=== PATIENT | female | born 1975 | race Caucasian/White ===

== ENCOUNTER 2022-08-21 15:39 | Emergency (ER) | payer OTHER, MEDICAID ==
[~2022-08-21] VITALS: Ht 152.4 cm; Wt 65.8 kg
[2022-08-21] MEDS ORDERED: ACET-10509 PO (16:37)
[2022-08-21] MEDS ORDERED: IBUP-1842 PO (16:37)
[2022-08-21 16:53] VITALS: BP 120/65; PULSE 74; RESP 18; TEMP 98
[2022-08-21 16:55] VITALS: RESP 18; TEMP 98
--- NOTE | 2022-08-21 16:56 | NUR ---
Patient discharged with v/s stable. Written and verbal after care instructions given and explained. Patient alert, oriented and verbalized understanding of instructions. with steady gait. All questions addressed prior to discharge. ID band removed. Patient advised to follow up with PMD. Rx of IBUPROFEN, TYLENOL given. Patient educated on indication of medication including possible reaction and side effects. Opportunity to ask questions provided and answered.
== END 2022-08-21 16:56 | disposition home or self-care (01) ==
LOC: MED 15:39
DX: S16.1XXA Strain of muscle, fascia and tendon at neck level, initial encounter (principal); V49.88XA Car occupant (driver) (passenger) injured in other specified transport accidents, initial encounter; Y93.89 Activity, other specified; Y92.89 Other specified places as the place of occurrence of the external cause; Y99.8 Other external cause status
CPT/HCPCS: 99282